=== PATIENT | female | born 1985 | race Caucasian/White ===

== ENCOUNTER 2021-04-09 20:35 | Emergency (ER) | payer OTHER, BC ==
[~2021-04-09] VITALS: Ht 157.5 cm; Wt 108.9 kg
[2021-04-10] MEDS ORDERED: FLEXERIL PO (00:27)
[2021-04-10] MEDS ORDERED: IBUPROFEN 800800 MG PO (00:27)
[2021-04-10 00:45] VITALS: BP 125/88
== END 2021-04-10 00:45 | disposition home or self-care (01) ==
LOC: ER 20:35
DX: M62.830 Muscle spasm of back (principal); M54.2 Cervicalgia; J45.909 Unspecified asthma, uncomplicated; F17.200 Nicotine dependence, unspecified, uncomplicated; Z98.890 Other specified postprocedural states; Z98.51 Tubal ligation status; Z91.040 Latex allergy status; V49.49XA Driver injured in collision with other motor vehicles in traffic accident, initial encounter; Y93.89 Activity, other specified; Y92.89 Other specified places as the place of occurrence of the external cause; Y99.8 Other external cause status